=== PATIENT | female | born 1945 | race Caucasian/White ===

== ENCOUNTER → 2016-09-30 | Day surgery (SDC) | payer MEDICARE ==
[~2016-09-30] MED LIST: ACTOS PO; AGGRENOX PO; AGGRENOX1 CAP PO; ALBUTEROL17 G1 IH; AMARYL PO; AMARYL2 MG PO; ASCORBIC ACID500 M2 PO; ASPIRIN81 M1 PO; ASPIRIN81 M2 PO; BACTRIM DS TABL1 TA1 PO; BACTRIM DS TABL1 TAB PO; CIPRO PO; CLOPIDOGREL75 MG PO; DIAZEPAM PO; DOXYCYCLINE PO; FLEXERIL10 MG PO; GLIMEPIRIDE2 MG PO; GLUCOPHAGE500 MG PO; HYDROCODON-ACE1 EAC7 PO; IMDUR-ER30 M1 PO; KEFLEX500 MG PO; LASIX PO; LEVAQUIN750 MG PO; LEVETIRACETAM500 M1 PO; LEVOTHROID150 MCG PO; LEVOTHYROXINE150 MC1 PO; LIPITOR PO; LIPITOR40 MG PO; LISINOPRIL PO; LISINOPRIL10 MG PO; LORTAB 7.5-5001 TAB PO; LOVASTATIN20 M1 PO; LOVASTATIN20 MG PO; MACROBID 100 M100 MG PO; METFORMIN HCL1000 M1 PO; METFORMIN HCL500 M1 PO; METFORMIN PO; METOPROLOL TAR25 MG PO; MEVACOR PO; MEVACOR40 MG PO; MULTI-VITAMIN1 EAC1 PO; NABUMETONE PO; NAPROXEN PO; NITROGLYCERIN0.4 MG SL; POTASSIUM GLUCONATE; RANEXA500 MG PO; SYNTHROID PO; SYNTHROID0.15 MG PO; SYNTHROID125 PO; ZESTRIL10 M1 PO; ZITHROMAX PO
--- NOTE | ~2016-09-30 | OR ---
Unit #: [id number] #: [id number] Patient: RADHA PATEL [id number] [address] [place], [place] [address] [id number] O MR#: [id number] NAME: RADHA PATEL ROOM: Date of Procedure: 09/30/2016 Admission Date: 09/30/2016 Surgeon: Roc Arredondo M.D. : 1945 Attending Physician: Roc Arredondo M.D. Primary Care Physician: Soheila Noble A.P.R.N. OPERATIVE REPORT PREOPERATIVE DIAGNOSES Back pain, radiculopathy, spinal stenosis, degenerative disk disease, post-compression fracture. POSTOPERATIVE DIAGNOSES Back pain, radiculopathy, spinal stenosis, degenerative disk disease, post-compression fracture. PROCEDURE PERFORMED Lumbar epidural steroid injection with intravenous sedation and fluoroscopic guidance for needle localization. INDICATIONS FOR PROCEDURE The patient is a 71-year-old female with previously mentioned diagnosis. Plan is for trial of epidural steroids. Risks and benefits of all have been reviewed. DESCRIPTION OF PROCEDURE The patient was placed in a seated position. Standard monitors were applied. 2 mg of Versed were given for sedation and anxiolysis, which were adequate. Vital signs remained stable. Sterile prep and drape then of the lumbar area was performed. The skin then at the L3-L4 level was localized with 1% lidocaine. An 18-gauge [employer] needle was then advanced via loss of resistance technique and fluoroscopic guidance in toward the epidural space. After confirming proper positioning with fluoroscopy and radiographic contrast, 80 mg of Depo-Medrol and 4 mL of 0.125% bupivacaine were deposited. The patient tolerated the procedure otherwise well and was discharged to the recovery room in stable condition. Dictated by... Roc Arredondo M.D. LHP/kristiel TD: 09/30/2016 23:01 JOB #: [id number] Unit #: [id number] #: [id number] Patient: RADHA PATEL OPERATIVE REPORT Page 1 of 1 X Roc Arredondo MD X PROCEDURE OPERATIVE NOTE
== END | disposition home or self-care (01) ==
LOC: CCSC 07:46
DX: M51.16 Intervertebral disc disorders with radiculopathy, lumbar region (principal); M48.06 Spinal stenosis, lumbar region; Z87.81 Personal history of (healed) traumatic fracture; Z79.84 Long term (current) use of oral hypoglycemic drugs; Z79.899 Other long term (current) drug therapy
CPT/HCPCS: 82947; J1040; J2250

== ENCOUNTER → 2016-11-04 | Day surgery (SDC) | payer MEDICARE ==
--- NOTE | ~2016-11-04 | OR ---
Unit #: [id number] #: [id number] Patient: RADHA PATEL [id number] [address] [place], [place] [address] [id number] O MR#: [id number] NAME: RADHA PATEL ROOM: Date of Procedure: 11/04/2016 Admission Date: 11/04/2016 Surgeon: Roc Arredondo M.D. : 1945 Attending Physician: Roc Arredondo M.D. Primary Care Physician: Soheila Noble A.P.R.N. OPERATIVE REPORT PREOPERATIVE DIAGNOSES Back pain, radiculopathy, degenerative lumbar disk disease, lumbar compression fracture, spinal stenosis. POSTOPERATIVE DIAGNOSES Back pain, radiculopathy, degenerative lumbar disk disease, lumbar compression fracture, spinal stenosis. PROCEDURE PERFORMED Lumbar epidural steroid injection with intravenous sedation and fluoroscopic guidance for needle localization. INDICATIONS FOR PROCEDURE The patient is a 71-year-old female status post L3 compression fracture and kyphoplasty, though she still has pain. She also has multilevel degenerative disk disease, status post left laminectomy of L5-S1 level and lumbar spinal stenosis. Initial epidural steroid injection done 5 weeks ago resulted in improvement in all components of her pain and weakness. She has maintained this improvement. She still has fairly significant limitations, so the plan is to repeat a second injection today. DESCRIPTION OF PROCEDURE The patient was placed in a seated position. Standard monitors were applied. 1 mg Versed was given for sedation and anxiolysis, which was adequate. Vital signs remained stable. Sterile prep and drape then of the lumbar area was performed. The skin then at the L4 level was localized with 1% lidocaine. An 18-gauge [facility] needle was then advanced via loss of resistance technique and fluoroscopic guidance in toward the epidural space. After confirming proper positioning with fluoroscopy and radiographic contrast, 80 mg Depo-Medrol and 4 mL of 0.125% bupivacaine were deposited. The patient tolerated the procedure otherwise well and was discharged to the recovery room in stable condition. Dictated by... Ye Boland/regan TD: 11/04/2016 11:33 JOB #: [id number] Unit #: [id number] #: [id number] Patient: RADHA PTAEL OPERATIVE REPORT Page 1 of 1 X Roc Arredondo MD X PROCEDURE OPERATIVE NOTE
== END | disposition home or self-care (01) ==
LOC: CCSC 07:56
DX: M51.36 Other intervertebral disc degeneration, lumbar region (principal); M48.06 Spinal stenosis, lumbar region; M54.16 Radiculopathy, lumbar region; Z79.899 Other long term (current) drug therapy; Z79.84 Long term (current) use of oral hypoglycemic drugs; Z79.82 Long term (current) use of aspirin
CPT/HCPCS: 82947; J1040; J2250